=== PATIENT | male | born 1955 | race Caucasian/White ===

== ENCOUNTER → 2023-12-01 08:38 | Outpatient (REF) | payer BC, MEDICARE, SELFPAY | LOC: RAD 08:38 | PROVIDERS: ATTENDING PHYSICIAN Internal Medicine | DX: M25.561 Pain in right knee (principal) | CPT/HCPCS: 73564 ==

== ENCOUNTER → 2024-11-28 12:36 | Outpatient (REF) | payer BC, SELFPAY | LOC: HWRAD 12:36 | PROVIDERS: ATTENDING PHYSICIAN Internal Medicine; FAMILY PHYSICIAN Internal Medicine | DX: R10.9 Unspecified abdominal pain (principal); K76.0 Fatty (change of) liver, not elsewhere classified | CPT/HCPCS: 76700 ==

== ENCOUNTER → 2025-02-11 14:19 | Outpatient (REF) | payer BC, SELFPAY | LOC: MRI 14:19 | PROVIDERS: ATTENDING PHYSICIAN Specialist; FAMILY PHYSICIAN Internal Medicine | DX: K76.0 Fatty (change of) liver, not elsewhere classified (principal) | CPT/HCPCS: 74181; 76391 ==

== ENCOUNTER 2025-03-06 06:20 | Day surgery (SDC) | payer BC, SELFPAY | END 2025-03-06 14:43 | disposition home or self-care (01) | LOC: GI 06:20 | PROVIDERS: ATTENDING PHYSICIAN Specialist | DX: Z12.11 Encounter for screening for malignant neoplasm of colon (principal); K57.30 Diverticulosis of large intestine without perforation or abscess without bleeding; D12.4 Benign neoplasm of descending colon; K62.1 Rectal polyp; K62.89 Other specified diseases of anus and rectum; Z86.0101 Personal history of adenomatous and serrated colon polyps | CPT/HCPCS: 45380; 88305 ==